=== PATIENT | female | born 1995 | race Caucasian/White ===

== ENCOUNTER → 2019-05-30 | Outpatient (CLI) | payer SELFPAY ==
--- NOTE | 2019-05-30 16:34 | RADIOLOGY REPORT (SQ) ---
EXAM DESCRIPTION: U/S OB 14+ TRNABD 1GES W/O DOP COMPLETED DATE/TIME: 05/30/2019 4:12 pm REASON FOR STUDY: Z34.82 ENCOUNTER FOR SUPRVSN OF NORMAL , SECOND TRIMESTER Z34.82 ENCOUNT ER FOR SUPRVSN OF NORMAL , SECOND TRI COMPARISON: None. TECHNIQUE: Static and Dynamic grayscale imaging performed of gravid uterus using transabdominal appr oach. Additional selected color Doppler and spectral images recorded. All stored on PACS. LIMITATIONS: None. FINDINGS: FETUSES SEEN:1 EGA: 19 weeks 6 days Calculated using BPD,FL,HC,AC documented on images. No discrepancy with clinica l dates. ROSEMARY: 10/18/2019 EFW: 329 grams PERCENTILE: Not calculated SULAIMAN: Largest pocket 3.7 cm PLACENTA: Posterior GRADE: I PRESENTATION: Variable ANATOMY: HEART RATE: 157 beats per minute. FOUR CHAMBER HEART: Visualized. THREE VESSEL CORD: Yes. CORD INSERTION: Visualized. KIDNEYS AND BLADDER: Visualized. Appear normal. STOMACH: Visualized. Appears normal. SPINE: Normal as visualized. BRAIN AND LATERAL VENTRICLES: Visualized. Appear normal. OTHER: No other significant finding. MATERNAL ADNEXA: Maternal ovaries not visualized. CERVICAL LENGTH: 3 cm in length Closed. OTHER: No other significant finding. IMPRESSION: LIVING INTRAUTERINE . ESTIMATED GESTATIONAL AGE 19 weeks 6 days NO VISUALIZED ANOMALIES. Trimester of : Second trimester - 13 weeks 1 day to 27 weeks 6 days. TECHNICAL DOCUMENTATION: JOB ID: [id number] [employer]- All Rights Reserved Reading location - IP/workstation name: [email or web address]
== END ==
LOC: RAD 14:34
PROVIDERS: ATTEND Midwife
DX: Z34.82 Encounter for supervision of other normal pregnancy, second trimester (principal)
CPT/HCPCS: 76805

== ENCOUNTER 2019-10-25 05:48 | Inpatient (IN) | payer MEDICAID ==
[2019-10-25 06:37] LABS: APPEARANCE,URINE CLOUDY; BILIRUBIN,URINE NEGATIVE (NEGATIVE); COLOR,URINE YELLOW; GLUCOSE, URINE NEGATIVE (NEGATIVE); KETONES,URINE NEGATIVE (NEGATIVE); LEUKOCYTE ESTERASE,URINE TRACE (NEGATIVE); NITRITE,URINE NEGATIVE (NEGATIVE); PROTEIN,URINE NEGATIVE (NEGATIVE); URINE SPECIFIC GRAVITY 1.012; UROBILINOGEN,URINE NEGATIVE mg/dL (<2.0)
[2019-10-25 06:56] LABS: URINE AMPHETAMINES SCREEN NEGATIVE; URINE BARBITURATES SCREEN NEGATIVE; URINE BENZODIAZEPINES SCREEN NEGATIVE; URINE COCAINE SCREEN NEGATIVE; URINE MARIJUANA (THC) SCREEN NEGATIVE; URINE METHADONE SCREEN NEGATIVE; URINE PHENCYCLIDINE SCREEN NEGATIVE
[2019-10-25] MEDS ORDERED: ONDANSETRON 4 MG TAB.RAPDIS ONE (07:38)
[2019-10-25] MEDS ORDERED: ONDANSETRON HCL INJ/PF 4 MG/2 ML SDV IV PRN (07:38)
[2019-10-25] MEDS ORDERED: RINGERS SOLUTION,LACTATED 1,000 ML IV ONE (08:55)
[2019-10-25] MEDS ORDERED: PENICILLIN G POTASSIUM 5,000,000 UNIT in DEXTROSE 5%-WATER 100 ML IV ONE (08:55)
[2019-10-25] MEDS ORDERED: MORPHINE SULFATE 10 MG/ML INJ IV ONE (08:55)
[2019-10-25] MEDS ORDERED: PROMETHAZINE HCL INJ 25 MG/1 ML VIAL IV ONE (08:56)
[2019-10-25] MEDS ORDERED: MORPHINE SULFATE 10 MG/ML INJ ONE (09:01)
[2019-10-25] MEDS ORDERED: PROMETHAZINE HCL INJ 25 MG/1 ML VIAL ONE (09:03)
[2019-10-25] MEDS ORDERED: PENICILLIN G-K 5 MILLION UNIT VIAL ONE ×3 (09:04→17:56)
[2019-10-25] MEDS ORDERED: PENICILLIN G-K 5 MILLION UNIT VIAL IV ONE (09:15)
[2019-10-25 09:57] LABS: ABSOLUTE LYMPHOCYTES (AUTO) 1.4 10^3/uL (0.5-4.7); ABSOLUTE MONOCYTES (AUTO) 0.5 10^3/uL (0.1-1.4); ABSOLUTE NEUT (AUTO) 9.4 10^3/uL (1.7-8.2); BASOPHILS % (AUTO) 0.2 % (0-2); EOSINOPHILS % (AUTO) 0.2 % (0-6); HEMATOCRIT 33.4 % (36.0-47.0); HEMOGLOBIN 11.7 g/dL (12.0-15.5); MEAN CORPUSCULAR HEMOGLOBIN 31.9 pg (27.0-33.4); MEAN CORPUSCULAR HGB CONC 34.9 g/dL (32.0-36.0); MEAN CORPUSCULAR VOLUME 91 fl (80-97); MONOCYTES % (AUTO) 4.6 % (3-13); PLATELET COUNT 191 10^3/uL (150-450); RED BLOOD COUNT 3.66 10^6/uL (3.72-5.28); RED CELL DISTRIBUTION WIDTH 13.2 % (11.5-14.0); TOTAL CELLS COUNTED % (AUTO) 100 %; WHITE BLOOD COUNT 11.4 10^3/uL (4.0-10.5)
[2019-10-25] MEDS ORDERED: RINGERS SOLUTION,LACTATED 1,000 ML IV PRN (10:15)
[2019-10-25] MEDS ORDERED: FENTANYL/BUPIVACAINE/NS/PF 300 MCG/150 ML RTUINJ EPI ONE (12:53)
[2019-10-25] MEDS ORDERED: EPHEDRINE SULFATE INJ 50 MG/1 ML AMPULE ONE (12:53)
[2019-10-25] MEDS ORDERED: BUPIVACAINE HCL 0.25 % INJ/PF (2.5 MG/1 ML) 30 ML VIAL ONE (12:53)
[2019-10-25] MEDS ORDERED: OXYTOCIN/NORMAL SALINE 20 UNIT/1,000 ML RTUINJ ONE (12:54)
[2019-10-25] MEDS ORDERED: OXYTOCIN 10 UNIT/ML VIAL ONE (12:54)
[2019-10-25] MEDS ORDERED: LIDOCAINE 1% INJ-PF (10 MG/ML) 30 ML SDV ONE (12:54)
[2019-10-25] MEDS ORDERED: MISOPROSTOL 0.2 MG TABLET ONE (12:54)
--- NOTE | 2019-10-25 14:12 | Admission Physical ---
Datetime Report Generated by CPN: 10/25/2019 14:12 CURRENT ADMISSION Chief Complaint: Uterine Contractions Indication for Induction: Not Applicable Admit Impression : Term, Intrauterine ; Active Labor Admit Plan: Admit to Unit; Initiate Labor Protocol ALLERGIES Medication Allergies: Yes Medication Allergies: codeine (10/25/2019) Latex: No Latex Allergies OBSTETRICAL HISTORY EDC: 10/21/2019 00:00 : 2 Para: 1 Term: 1 : 0 SAB: 0 IAB: 0 Livin Gestational Diabetes: No Rh Sensitization: No Incompetent Cervix: No SILVANO: No Infertility: No ART Treatment: No Uterine Anomaly: No IUGR: No Hx Previous C/S: No Macrosomia: No Hx Loss/Stillborn: No PIH: No Hx : No Placenta Previa/Abruption: No Depression/PP Depression: No PTL/PROM: No Post Hemorrhage: No Current Procedures: Ultrasound SEE RECORDS Alcohol: No Marijuana : No Cocaine: No Other Illicit Drugs: No MEDICAL HISTORY Diabetes: No Blood Transfusion: Yes Pulmonary Disease (Asthma, TB): No Breast Disease: No Hypertension: No Rubber Mixer Surgery: No Heart Disease: No Hosp/Surgery: No Autoimmune Disorder: No Anesthetic Complications: No Kidney Disease: No Abnormal Pap Smear: No Neuro/Epilepsy: No Psychiatric Disorders: No Other Medical Diseases: No Hepatitis/Liver Disease: No Significant Family History: No Varicosities/Phlebitis: No Trauma/Violence : No Thyroid Dysfunction: No Medical History Comments: post hemorrhage requiring transfusion INFECTIOUS HISTORY Gonorrhea: No Genital Herpes: No Chlamydia: Yes Tuberculosis: No Syphilis: No Hepatitis: No HIV/AIDS Exposure: No Rash or Viral Illness: No HPV: No Infectious History Comments: 2014 PHYSICAL EXAM General: Normal HEENT: Normal Neurologic: Normal Thyroid: Deferred Heart: Normal Lungs: Normal Breast: Deferred Back: Normal Abdomen: Normal Genitourinary Exam: Normal Extremities: Normal DTRs: Deferred Pelvic Type: Adequate Vital Signs: Reviewed; Within Normal Limits VAGINAL EXAM Dilatation: 5 Effacement: 90 Station: -1 Contraction Comments: Q2-7 mins MEMBRANES Pooling: Negative Membranes: Ruptured Amniotic Fluid Color: Clear FETUS A EGA: 40.4 Monitoring: External US FHR- Baseline: 135 Variability: Moderate 6-25bpm Accelerations: 15X15 Decelerations: None Estimated Weight (gm): 3200 Presentation: Vertex Admit Comment: at 40w4d admitted for active labor at term. GBS pos, penicillin ordered for GBS prophylaxis. AROM on admission. P: epidural on maternal request, pitocin augmentation if needed, anticipate PLANS FOR LABOR AND DELIVERY Pain Management: Epidural Feeding Preference: Breast Benefit of Breast Feed Discussed: Yes Circumcision: N/A INFORMED CONSENT Assignment: Lesli Vázquez MD Signature: with User ID: Annika : with User ID: [email or web address]
[2019-10-25] MEDS ORDERED: OXYTOCIN/NORMAL SALINE 20 UNIT/1,000 ML RTUINJ IV PRN ×2 (14:56→19:04)
[2019-10-25] MEDS ORDERED: PENICILLIN G POTASSIUM 2,500,000 UNIT in DEXTROSE 5%-WATER 50 ML IV SCH (18:00)
[2019-10-25] MEDS ORDERED: PSEUDOEPHEDRINE HCL 30 MG TABLET PO PRN (19:04)
[2019-10-25] MEDS ORDERED: PROMETHAZINE HCL 25 MG TABLET PO PRN (19:04)
[2019-10-25] MEDS ORDERED: NA PHOS,M-B/NA PHOS,DI-BA (ADULT) 133 ML ENEMA PR PRN (19:04)
[2019-10-25] MEDS ORDERED: ACETAMINOPHEN 650 MG SUPP.RECT PR PRN (19:04)
[2019-10-25] MEDS ORDERED: DIPHENHYDRAMINE HCL 25 MG CAPSULE PO PRN (19:04)
[2019-10-25] MEDS ORDERED: DIPH/PERTUSS(ACELL)/TETANUS VAC/PF 0.5 ML SYR (>=10YO) IM PRN (19:04)
[2019-10-25] MEDS ORDERED: GLYCERIN/WITCH HAZEL LEAF 1 EACH MED..WIPE TP PRN (19:04)
[2019-10-25] MEDS ORDERED: PROMETHAZINE HCL INJ 25 MG/1 ML VIAL IV PRN (19:04)
[2019-10-25] MEDS ORDERED: BENZOCAINE/MENTHOL AEROSOL SPRAY 56 ML TOP PRN (19:04)
[2019-10-25] MEDS ORDERED: DIBUCAINE 1% OINTMENT 28 GM TP PRN (19:04)
[2019-10-25] MEDS ORDERED: ACETAMINOPHEN WITH CODEINE #3 TABLET PO PRN ×2 (19:04)
[2019-10-25] MEDS ORDERED: ZOLPIDEM TARTRATE 5 MG TABLET PO PRN (19:04)
[2019-10-25] MEDS ORDERED: PROMETHAZINE HCL 25 MG SUPP.RECT PR PRN (19:04)
[2019-10-25] MEDS ORDERED: MAGNESIUM HYDROXIDE SUSP 30 ML UDCUP PO PRN (19:04)
[2019-10-25] MEDS ORDERED: MEASLES,MUMPS&RUBELLA VACC/PF 0.5 ML VIAL SUBCUT PRN (19:04)
--- NOTE | 2019-10-25 22:58 | Delivery Summary ---
Del Sum A-C Datetime Report Generated by CPN: 10/25/2019 22:58 DELIVERY PERSONNEL DELIVERY PERSONNEL: [id number] Delivery Doctor:: Lesli Vázquez MD Labor and Delivery Nurse:: Manju Rodriguez RNinspector screen printing Nurse:: Wanda Wilhelm RNC Nursery Nurse:: Tere Mohr RN Nursery Nurse:: Vy Espinosa RN Pond Sawyer/CNC LATHE MACHINE OPERATOR: Breanne Estrada, ST P[place] Sawyer/CNC LATHE MACHINE OPERATOR: Jeanine Dee, YARD SWITCH OPERATOR MATERNAL INFORMATION Delivery Anesthesia: Epidural Medications After Delivery: Pitocin Bolus-Please Comment Meds After Delivery Comment: Pitocin 20 units in 1000 ml nss open for bolus Estimated Blood Loss (ml): 250 Delivery QBL: 400 Maternal Complications: None LABOR SUMMARY EDC: 10/21/2019 00:00 No. Babies in Womb: 1 Attempted: No Labor Anesthesia: Epidural LABOR INFORMATION Reason for Induction: Not Applicable Onset of Labor: 10/25/2019 01:00 Complete Dilatation: 10/25/2019 18:29 Oxytocin: Augmentation Group B Beta Strep: Positive Antibiotics # of Doses: 3 Antibiotics Time of Last Dose: 1730 Name of Antibiotic Given: Penicillin Steroids Given: None Reason Steroids Not Administered: Not Applicable MEMBRANES Membranes Rupture Method: Artificial Rupture of Membranes: 10/25/2019 12:14 Length of Rupture (hr): 6.60 Amniotic Fluid Color: Clear Amniotic Fluid Amount: Moderate Amniotic Fluid Odor: Normal STAGES OF LABOR Stage 1 hr: 17 Stage 1 min: 29 Stage 2 hr: 0 Stage 2 min: 21 Stage 3 hr: 0 Stage 3 min: 5 Total Time in Labor hr: 17 Total Time in Labor min: 55 VAGINAL DELIVERY Episiotomy: None Laceration #1: Perineal Laceration Extension #1: First Degree Laceration #2: Periurethral Laceration Extension #2: N/A Laceration #3: None Laceration Extension #3: N/A Laceration Repair: Yes Laceration Repair Note: Both small lacerations repaired with 3-0 chromic suture Sponge Count Correct: N/A Sharps Count Correct: N/A CSECTION DELIVERY Primary Indication: N/A Secondary Indication: N/A CSection Incidence: N/A Labor: N/A Elective: N/A CSection Incision: N/A BABY A INFORMATION Delivery Date/Time: 10/25/2019 18:50 Method of Delivery: Vaginal Born in Route : No : N/A Forceps: N/A Vacuum Extraction: N/A Shoulder Dystocia : No PRESENTATION/POSITION BABY A Presentation: Cephalic Cephalic Presentation: Vertex Vertex Position: Right Occipital Anterior Breech Presentation: N/A PLACENTA INFORMATION BABY A Placenta Delivery Time : 10/25/2019 18:55 Placenta Method of Delivery: Spontaneous Placenta Status: Delivered SCORES BABY A Heart Rate 1 min: >100 bpm Resp Effort 1 min: Good Cry Reflex Irritability 1 min: Cough or Sneeze or Pulls Away Muscle Tone 1 min: Active Motion Color 1 min: Blue/Pale Resuscitation Effort 1 min: Tactile Stimulation SCORE 1 MIN: 8 Heart Rate 5 min: >100 bpm Resp Effort 5 min: Good Cry Reflex Irritability 5 min: Cough or Sneeze or Pulls Away Muscle Tone 5 min: Active Motion Color 5 min: Body Curlew, Extremities Blue Resuscitation Effort 5 min: N/A SCORE 5 MIN: 9 Resuscitation Effort 10 min: N/A INFANT INFORMATION BABY A Gestational Age at Delivery: 40.4 Gestational Status: Full Term- 39- 40.6 Weeks Outcome : Liveborn Condition : Stable Sex: Female IDENTIFICATION BABY A Infant Verification Date/Time: 10/25/2019 19:10 ID Band Number: [id number] Mother's Name Verified: Yes Infant RN Verifying Infant: jessie woodall rn WEIGHT/LENGTH BABY A Infant Birthweight (gm): 3846 Infant Weight (lb): 8 Infant Weight (oz): 8 Length (in): 20.50 Infant Length (cm): 52.07 CORD INFORMATION BABY A No. Cord Vessels: 3 Nuchal Cord : N/A Cord Blood Taken: Yes-For Eval (Mom's Blood Type - or O+) Infant Suction: None ASSESSMENT BABY A Infant Complications: None Physical Findings at Delivery: Within Normal Limits Respirations: Appears Normal Skin to Skin: Yes Charge Account Authorizer/ALS Called : No Care By: C Jesús, RN Transferred To: Remains with Mother BABY B INFORMATION : Failed SIGNATURES Signature: Electronically signed by Lesli Vázquez MD ([facility]) on 10/25/2019 at 19:13 with User ID: [email or web address] : I was personally available for consultation and serving as supervising physician for the MLP.
[2019-10-25] MEDS: IBUPROFEN 800 MG TABLET PO SCH (23:38)
[2019-10-25] MEDS: FAMOTIDINE 20 MG TABLET PO SCH (23:38)
[2019-10-26] MEDS ORDERED: INFLUENZA QUAD (6MOS+) 2019-20 VAC 0.5 ML SYR IM ONE (00:15)
[2019-10-26] MEDS: IBUPROFEN 800 MG TABLET PO SCH ×3 (06:32→21:36)
[2019-10-26 07:03] LABS: HEMATOCRIT 30.2 % (36.0-47.0); HEMOGLOBIN 10.5 g/dL (12.0-15.5); MEAN CORPUSCULAR HEMOGLOBIN 31.7 pg (27.0-33.4); MEAN CORPUSCULAR HGB CONC 34.7 g/dL (32.0-36.0); MEAN CORPUSCULAR VOLUME 91 fl (80-97); PLATELET COUNT 176 10^3/uL (150-450); RED BLOOD COUNT 3.31 10^6/uL (3.72-5.28); WHITE BLOOD COUNT 13.7 10^3/uL (4.0-10.5)
[2019-10-26] MEDS: PRENATAL VITAMIN W DHA CAPSULE PO SCH (09:40)
[2019-10-26] MEDS: SENNOSIDES/DOCUSATE 8.6-50 MG 1 EACH TABLET PO SCH (09:40)
[2019-10-26] MEDS: FERROUS SULFATE 325 MG TABLET PO SCH ×2 (09:40→17:19)
[2019-10-26] MEDS: DOCUSATE SODIUM 100 MG CAPSULE PO SCH ×2 (09:40→17:19)
[2019-10-26] MEDS: FAMOTIDINE 20 MG TABLET PO SCH ×2 (09:41→21:36)
--- NOTE | 2019-10-26 10:30 | PDOC PROGRESS REPORT ---
Subjective-OB Progress Note for:: 10/26/19 - PP Day #1, doing well, no complaints, , O+, Rubella Immune Physical Exam (OB) Vital Signs: Temp Pulse Resp BP Pulse Ox 97.6 F 97 18 105/57 L 99 10/25/19 22:32 10/25/19 22:32 10/25/19 22:32 10/25/19 22:32 10/25/19 22:32 Intake & Output 10/25/19 10/26/19 10/27/19 06:59 06:59 06:59 Weight 81.4 kg - General General Appearance: Appears well, Alert - PIH/Pre-Eclampsia Clonus: Negative Headache: Absent Epigastric Pain: No Visual Changes: No - Lochia Lochia Amount: Small 10-25 ml Lochia Color: Rubra/Red - Abdomen Description: Soft Hernia Present: No Fundal Description: Firm Fundal Height: u/u - u/2 - Respiratory Respiratory Status: No respiratory distress - Abdominal Distension: No distension Tenderness: Nontender - Genitourinary Genitourinary Note: voiding - Extremities Upper extremity: Normal inspection Lower extremities: Normal inspection - Neurological Cognition: Normal Orientation: AAOx4 - Psychological Associated symptoms: Normal affect, Normal mood - Skin Skin Temperature: Warm Skin Moisture: Dry Objective-Diagnostic Laboratory: 10/26/19 06:45 10/26/19 06:45 WBC 13.7 H RBC 3.31 L Hgb 10.5 L Hct 30.2 L MCV 91 MCH 31.7 MCHC 34.7 RDW 13.0 Plt Count 176 Assessment and Plan(PN) - Assessment and Plan (1) (normal spontaneous vaginal delivery) Is this a current diagnosis for this admission?: Yes (2) Active labor at term Is this a current diagnosis for this admission?: Yes (3) Group B streptococcal carriage complicating Is this a current diagnosis for this admission?: Yes Plan:: Routine PP orders, Ambulation encouraged - Time Spent with Patient Time with patient: Less than 15 minutes - Disposition Anticipated Discharge: Home Within: within 24 hours
[2019-10-27] MEDS: IBUPROFEN 800 MG TABLET PO SCH (06:01)
[2019-10-27 08:11] VITALS: BP 102/67
--- NOTE | 2019-10-27 09:56 | PDOC DISCHARGE SUMMARY ---
Impression - Admit/DC Date/PCP Admission Date/Primary Care Provider: 10/25/19 12:38 JABIER MAAY MD Discharge Date: 10/27/19 - PP Day #2, doing well, no complaints, , O+. - Discharge Diagnosis (1) (normal spontaneous vaginal delivery) Is this a current diagnosis for this admission?: Yes (2) Active labor at term Is this a current diagnosis for this admission?: Yes (3) Group B streptococcal carriage complicating Is this a current diagnosis for this admission?: Yes - Additional Information Resuscitation Status: Full Code Discharge Diet: As Tolerated, Regular Discharge Activity: Activity As Tolerated, No Lifting Over 10 Pounds, Pelvic Rest [facility]: [facility] [Provider Group] Prescriptions: Ibuprofen [Motrin 800 mg Tablet] 800 mg PO Q8 #60 tablet Home Medications: Prenat 115/Iron Fum/Folic/Dss [ 19 Tablet] 1 tab PO DAILY 10/25/19 Ibuprofen [Motrin 800 mg Tablet] 800 mg PO Q8 #60 tablet 10/27/19 HPI Reason(s) for Admission: Onset of Labor Procedures: Ultrasound Intrapartum Procedure(s): Spontaneous Vaginal Delivery Complication(s): Laceration-Perineal Laceration-Degree: 1st Hospital Course Hospital Course: normal Results Laboratory Results: WBC 13.7 10^3/uL (4.0-10.5) H 10/26/19 06:45 RBC 3.31 10^6/uL (3.72-5.28) L 10/26/19 06:45 Hgb 10.5 g/dL (12.0-15.5) L 10/26/19 06:45 Hct 30.2 % (36.0-47.0) L 10/26/19 06:45 MCV 91 fl (80-97) 10/26/19 06:45 MCH 31.7 pg (27.0-33.4) 10/26/19 06:45 MCHC 34.7 g/dL (32.0-36.0) 10/26/19 06:45 RDW 13.0 % (11.5-14.0) 10/26/19 06:45 Plt Count 176 10^3/uL (150-450) 10/26/19 06:45 Lymph % (Auto) 12.0 % (13-45) L 10/25/19 09:32 [place]ole % (Auto) 4.6 % (3-13) 10/25/19 09:32 Eos % (Auto) 0.2 % (0-6) 10/25/19 09:32 Baso % (Auto) 0.2 % (0-2) 10/25/19 09:32 Absolute Neuts (auto) 9.4 10^3/uL (1.7-8.2) H 10/25/19 09:32 Absolute Lymphs (auto) 1.4 10^3/uL (0.5-4.7) 10/25/19 09:32 Absolute Monos (auto) 0.5 10^3/uL (0.1-1.4) 10/25/19 09:32 Absolute Eos (auto) 0.0 10^3/uL (0.0-0.6) 10/25/19 09:32 Absolute Basos (auto) 0.0 10^3/uL (0.0-0.2) 10/25/19 09:32 Seg Neutrophils % 83.0 % (42-78) H 10/25/19 09:32 Urine Color YELLOW 10/25/19 06:07 Urine Appearance CLOUDY 10/25/19 06:07 Urine pH 7.0 (5.0-9.0) 10/25/19 06:07 Ur Specific [place] 1.012 10/25/19 06:07 Urine Protein NEGATIVE mg/dL (NEGATIVE) 10/25/19 06:07 Urine Glucose (UA) NEGATIVE mg/dL (NEGATIVE) 10/25/19 06:07 Urine Ketones NEGATIVE mg/dL (NEGATIVE) 10/25/19 06:07 Urine Blood SMALL (NEGATIVE) H 10/25/19 06:07 Urine Nitrite NEGATIVE (NEGATIVE) 10/25/19 06:07 Urine Bilirubin NEGATIVE (NEGATIVE) 10/25/19 06:07 Urine Urobilinogen NEGATIVE mg/dL (<2.0) 10/25/19 06:07 Ur Leukocyte Esterase TRACE (NEGATIVE) H 10/25/19 06:07 Urine Ascorbic Acid NEGATIVE (NEGATIVE) 10/25/19 06:07 Urine Opiates Screen NEGATIVE 10/25/19 06:07 Urine Methadone Screen NEGATIVE 10/25/19 06:07 Ur Barbiturates Screen NEGATIVE 10/25/19 06:07 Ur Phencyclidine Scrn NEGATIVE 10/25/19 06:07 Ur Amphetamines Screen NEGATIVE 10/25/19 06:07 U Benzodiazepines Scrn NEGATIVE 10/25/19 06:07 Urine Cocaine Screen NEGATIVE 10/25/19 06:07 U Marijuana (THC) Screen NEGATIVE 10/25/19 06:07 RPR NONREACTIVE (NONREACTIVE) 10/25/19 09:32 Blood Type O POSITIVE 10/25/19 09:32 Antibody Screen NEGATIVE 10/25/19 09:32 Plan Health Concerns: none Plan of Treatment: d/c to home, f/up with [facility] in 4 wks for PP check Time Spent: Less than 30 Minutes
[2019-10-27] MEDS: DOCUSATE SODIUM 100 MG CAPSULE PO SCH (10:53)
[2019-10-27] MEDS: FERROUS SULFATE 325 MG TABLET PO SCH (10:53)
[2019-10-27] MEDS: SENNOSIDES/DOCUSATE 8.6-50 MG 1 EACH TABLET PO SCH (10:53)
[2019-10-27] MEDS: PRENATAL VITAMIN W DHA CAPSULE PO SCH (10:53)
== END 2019-10-27 13:20 | disposition home or self-care (01) | DRG 807 ==
LOC: LC 05:48 → LR 12:38 → 2S 22:28
PROVIDERS: ADMIT Obstetrics & Gynecology; ATTEND Obstetrics & Gynecology
PROC: 10E0XZZ Delivery of Products of Conception, External Approach (ICD-10-PCS; principal; 2019-10-25)
PROC: 0HQ9XZZ Repair Perineum Skin, External Approach (ICD-10-PCS; 2019-10-25)
PROC: 10907ZC Drainage of Amniotic Fluid, Therapeutic from Products of Conception, Via Natural or Artificial Opening (ICD-10-PCS; 2019-10-25)
DX: O99.824 Streptococcus B carrier state complicating childbirth (principal); Z37.0 Single live birth; O70.0 First degree perineal laceration during delivery; Z3A.40 40 weeks gestation of pregnancy; Z88.5 Allergy status to narcotic agent; Z86.19 Personal history of other infectious and parasitic diseases
CPT/HCPCS: 36415; 80307; 81005; 85025; 85027; 86592; 86850; 86900; 86901; 90715; J2270; J2540; J2550; J2590; J3010; J3490; J7060; S0119